=== PATIENT | female | born 1960 | race Caucasian/White ===

== ENCOUNTER → 2017-06-15 | Outpatient (CLI) | payer BC | END | disposition home or self-care (01) | LOC: GMAB 10:34 | PROVIDERS: ATTEND Family Medicine | DX: Z00.00 Encounter for general adult medical examination without abnormal findings (principal) ==

== ENCOUNTER → 2018-04-07 | Outpatient (CLI) | payer BC | LOC: GMAB 10:53 | PROVIDERS: ATTEND Family Medicine | DX: Z00.00 Encounter for general adult medical examination without abnormal findings (principal) ==

== ENCOUNTER → 2019-07-19 | Outpatient (CLI) | payer BC | LOC: GMAE 11:24 | PROVIDERS: ATTEND Family Medicine | DX: I10 Essential (primary) hypertension (principal) ==

== ENCOUNTER → 2020-09-19 | Outpatient (CLI) | payer BC | LOC: GMAE 14:29 | PROVIDERS: ATTEND Family Medicine | DX: I10 Essential (primary) hypertension (principal) ==